=== PATIENT | male | born 2000 | race Caucasian/White ===

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

== ENCOUNTER 2020-04-04 19:59 | Emergency (ER) | payer OTHER, SELFPAY ==
[2018-06-30 15:06] VITALS: BMI 40.6
[2020-04-04 20:00] VITALS: BP 177/92; PULSE 128; RESP 20; TEMP 36.7; O2SAT 95; BMI 44.6
[2020-04-04 20:04] VITALS: BP 177/92; PULSE 125; PULSE 127; RESP 20; TEMP 36.7; O2SAT 94
[2020-04-04 21:35] VITALS: O2SAT 94
[2020-04-04 21:41] VITALS: O2SAT 94
--- NOTE | 2020-04-04 21:50 | RAD_ITS ---
COUGH AND SOB; PENDING COVID TEST EXAMINATION/TECHNIQUE: XR Chest 1 View: COMPARISON: None FINDINGS: LINES/DEVICES: None. LUNGS: Left basilar infiltrate and effusion. No pneumothorax. MEDIASTINUM AND CARDIOVASCULAR STRUCTURES: Cardiac silhouette not enlarged. Central airways and mediastinal contour are unremarkable. BONES AND SOFT TISSUES: Unremarkable. RAD/Chest 1 View (Portable) IMPRESSION: Left basilar infiltrate and effusion at 2210 Reported and signed by: Karely Donaldson DO Electronically Signed: Karely Donaldson DO at 22:09 EST Tel , Service support ,
[2020-04-04 22:39] VITALS: BP 138/72; PULSE 112; RESP 22; TEMP 37.4; O2SAT 97
--- NOTE | 2020-04-04 22:41 | EKG12_ITS ---
Test Reason : DYSRHYTHMIA Blood Pressure : / mmHG Vent. Rate : 113 BPM Atrial Rate : 113 BPM P-R Int : 160 ms QRS Dur : 092 ms QT Int : 304 ms P-R-T Axes : 041 060 017 degrees QTc Int : 416 ms Sinus tachycardia Otherwise normal ECG Confirmed by LUX CODY, CURRY ([id number]), science editor MAKAYLA PHAN ([id number]) on 04/09/2020 11:14:50 AM Referred By: KETAN Confirmed By:SHAYLA WASSERMAN MD
[2020-04-04 23:13] LABS: Absolute Neutrophil Count 2.5 X10^3/uL (2.0-7.7); Hematocrit 37.5 % (40-54); Hemoglobin 12.1 g/dL (13.0-16.5); Lymphocyte % 17.2 % (19-41); Mean Corp Hgb Conc 32.3 g/dL (32-36); Mean Corpuscular Hgb 29.1 pg (27.0-32.0); Mean Corpuscular Volume 90.1 fL (80-94); Mean Platelet Vol. 9.1 fl (6.2-12.0); Monocyte# 0.33 X10^3/uL; Monocyte% 9.5 % (0-10); NRBC Flagged by Analyzer 0 % (0-5); Neutrophil # 2.54 X10^3/uL (2.7-7.7); POSITIVE DIFFERENTIAL YES; Platelet Count 168 K/mm3 (150-450); RBC Distribution Width CV 14.7 % (11.6-14.6); Red Blood Count 4.16 M/mm3 (4.6-6.2); White Blood Count 3.5 K/mm3 (4.4-11.0)
[2020-04-04 23:16] LABS: Differential Indicated SCAN CRITERIA MET
[2020-04-04 23:23] LABS: D-Dimer Quantitative (DVT/PE) 0.58 FEU/ug/m (0.27-0.49)
[2020-04-04 23:28] LABS: ALB/GLOB Ratio 1.1 RATIO (0.9-2.4); AST(SGOT) 16 U/L (15-37); Alanine Aminotransfer ALT/SGPT 38 U/L (16-61); Albumin, Serum 3.7 g/dL (3.2-5.0); Alkaline Phosphatase 71 U/L (45-117); Anion Gap 7 (5-15); BUN 16 mg/dL (7-18); Chloride 106 mmol/L (98-107); Creatinine, Serum 0.89 mg/dL (0.70-1.30); EST Glomerular Filtration Rate 115 mL/min (>60); Est Glom Filt Rate - Afr Amer 140 mL/min (>60); Estimated Creatinine Clearance 162.55 ml/min; Globulin 3.5 g/dL (2.2-4.2); Glucose 95 mg/dL (74-106); Potassium 3.8 mmol/L (3.5-5.1); Protein, Total 7.2 g/dL (6.4-8.2); Sodium Level 139 mmol/L (136-145)
[2020-04-04 23:33] VITALS: BP 133/83; PULSE 111; RESP 20; TEMP 37.4; O2SAT 97
--- NOTE | 2020-04-04 23:33 | CT_ITS ---
COUGH, SOB SINCE THURSDAY, ELEVATED D-DIMER, COVID PENDING TECHNIQUE:CTA Chest WO/W Contrast Injection A CT of the chest was performed following the administration of ml 100mL Isovue-370 Thin axial reconstructed images were performed through the pulmonary vasculature as per the routine pulmonary embolus protocol.MIP and mutiplanar reconstructions A dose optimization technique was used during the scan # of images including paperwork:[id number] Comparison: Chest radiograph on April 04, 2020 FINDINGS: No aneurysm or dissection. Pulmary arteries: No evidence of pulmonary emboli The heart is enlarged. No evidence of right heart strain. Trace pericardial effusion. No pleural effusion. Increased density is seen within anterior mediastinum that may represent residual thymic tissue versus anterior mediastinal adenopathy. No middle mediastinal or hilar adenopathy is noted The lungs patchy groundglass opacity is seen within the right upper lobe. This is more prominent in the dependent portion of the right lower lobe. There is also patchy infiltrate seen within the left upper lobe most marked in the posterior segment. Consolidative infiltrate is seen within the left lower lobe. Thickening of the left fissure. Pneumpothorax: none The trachea and central airways appear patent . Limited views of the upper abdomen small hiatal hernia. The spleen is enlarged measuring 18.2 cm. No acute osseous abnormality. IMPRESSION: There is no aneurysm dissection or pulmonary embolism Patchy groundglass opacity seen within the right upper and lower lobes and within the posterior segment of the left upper lobe. In addition there is consolidative infiltrate seen within the left lower lobe. While these findings can be seen with viral pneumonitis they are nonspecific and can occur with a variety of infectious or noninfectious etiology Anterior mediastinal soft tissue density which may represent residual thymic tissue versus adenopathy. No additional adenopathy is noted. There is splenomegaly. Small hiatal hernia Individualized dose optimization techniques were used for this CT. at 0024 Reported and signed by: Karely Donaldson DO Electronically Signed: Karely Donaldson DO at 0:23 EST Tel , Service support , CT/CTA Chest W/WO Contrast
[2020-04-05 00:14] LABS: BNP,B-Type NATRIURETIC PEPTIDE < 2.0 pg/mL (0-100)
[2020-04-05 00:33] VITALS: BP 137/77; PULSE 106; RESP 20; TEMP 37.4; O2SAT 97
[2020-04-05 00:53] VITALS: O2SAT 97
--- NOTE | 2020-04-05 01:10 | ED.VIS.FLU ---
History of Present Illness Chief Complaint: Shortness of Breath Informant: Patient Onset: Days Context: Gradual Onset Timing: Continuous Quality: Dyspnea on exertion Associated Symptoms: Cough, Fever, Sore throat, White sputum Chest Pain: None Narrative: Is a 19-year-old male with no significant past medical history presenting with worsening shortness of breath and pain with breathing. Patient's entire family tested positive for Covid 1/2 weeks ago. Patient had 2 negative Covid test and was tested again yesterday. That test is still pending. Patient states he had worsening respiratory symptoms since Thursday, 4 days ago. He has had pleuritic chest pain, dyspnea on exertion and shortness of breath even when sitting down. He states his symptoms are slightly better when he leans forward and slightly worse when he lays backwards. He denies any GI symptoms or abdominal pain. He has had associated sore throat nasal congestion. Reports associated fever and chills. Is been alternating Tylenol and ibuprofen relief of his symptoms. Came to the emergency room for further evaluation today. Past Medical History - Allergies and Home Meds Allergies/Adverse Reactions: Allergies No Known Allergies Allergy (Verified 04/04/20 20:00) Primary Care Physician: Callie Smith MD [Primary Care Provider] - Past Medical History: None Surgical History: noncontributory Lives: With Family Smoking Status: Never smoker Review of Systems General: Reports: Chills, Fever, Malaise. Denies: Sweats Cardiovascular: Denies: Chest pain, Palpitations Respiratory: Reports: Dyspnea, Cough, Sputum, Dyspnea on exertion. Denies: Orthopnea, Paroxysmal nocturnal dyspnea Gastrointestinal: Denies: Abdominal pain, Nausea, Vomiting, Diarrhea, Melena, Hematochezia Genitourinary: Denies: Dysuria, Hematuria, Frequency Skin: Denies: Rash Neurological: Denies: Headache, Weakness, Numbness Physical Exam Vital Signs/Narrative: Vital Signs Temp Pulse Resp BP Pulse Ox 04/05/20 00:33 99.3 F H 106 H 20 H 137/77 H 97 04/04/20 23:33 99.4 F H 111 H 20 H 133/83 H 97 04/04/20 22:39 99.4 F H 112 H 22 H 138/72 H 97 04/04/20 21:35 94 Inital Vital Signs reviewed: Yes General: Well nourished, Well developed Head: Normocephalic, Atraumatic Eyes: Perrl, EOMI ENT: Moist mucous membranes, TM's clear Neck: Supple, Nontender Cardiovascular: Regular rhythm, No murmurs, Tachycardia Respiratory: Rhonchi, Diminished. Negative for: Decreased Air Movement, Retractions Abdomen: Soft, Nontender, Nondistended, Normal bowel sounds Back: Nontender, Normal Inspection Extremities: Nontender, No edema Skin: Normal color, No rash Neurological: Alert, Oriented x3, Cranial nerves II-XII grossly intact, Normal Strength, Normal Sensation Psychological: Normal affect Diagnostic/Tx/Re-eval Chest X-Ray - ED: 1 View, Read by ED Physician, Read by Radiologist, Left Infiltrate, Left Effusion Clinical Impression(s) from Imaging Studies Chest X-Ray 04/04/20 21:50 IMPRESSION: Left basilar infiltrate and effusion at 2210 Reported and signed by: Karely Donaldson DO Electronically Signed: Kraely Donaldson DO at 22:09 EST Tel , Service support , Chest CTA 04/04/20 23:33 Laboratory Data 04/04/20 04/04/20 04/04/20 22:49 22:49 22:49 WBC 3.5 L RBC 4.16 L Hgb 12.1 L Hct 37.5 L MCV 90.1 MCH 29.1 MCHC 32.3 RDW Std Deviation 49.0 H RDW Coeff of Aracely 14.7 H Plt Count 168 MPV 9.1 Immature Gran % (Auto) 0.300 Neut % (Auto) 73.0 H Lymph % (Auto) 17.2 L [place] % (Auto) 9.5 Eos % (Auto) 0.0 Baso % (Auto) 0.0 Absolute Neuts (auto) 2.5 Absolute Lymphs (auto) 0.60 L Nucleated RBC % 0 Diff Path Review May foll D-Dimer Quant (PE/DVT) 0.58 H* Sodium 139 Potassium 3.8 Chloride 106 Carbon Dioxide 26.0 Anion Gap 7 BUN 16 Creatinine 0.89 Estim Creat Clear Calc 162.55 Est GFR (MDRD) Af Amer 140 Est GFR (MDRD) Non-Af 115 BUN/Creatinine Ratio 18.0 Glucose 95 Lactic Acid Calcium 8.0 L Total Bilirubin 0.40 AST 16 ALT 38 Alkaline Phosphatase 71 Troponin I < 0.015 B-Natriuretic Peptide Total Protein 7.2 Albumin 3.7 Globulin 3.5 Albumin/Globulin Ratio 1.1 04/04/20 04/04/20 22:49 22:49 WBC RBC Hgb Hct MCV MCH MCHC RDW Std Deviation RDW Coeff of Aracely Plt Count MPV Immature Gran % (Auto) Neut % (Auto) Lymph % (Auto) [place] % (Auto) Eos % (Auto) Baso % (Auto) Absolute Neuts (auto) Absolute Lymphs (auto) Nucleated RBC % Diff Path Review D-Dimer Quant (PE/DVT) Sodium Potassium Chloride Carbon Dioxide Anion Gap BUN Creatinine Estim Creat Clear Calc Est GFR (MDRD) Af Amer Est GFR (MDRD) Non-Af BUN/Creatinine Ratio Glucose Lactic Acid 1.0 Calcium Total Bilirubin AST ALT Alkaline Phosphatase Troponin I B-Natriuretic Peptide < 2.0 Total Protein Albumin Globulin Albumin/Globulin Ratio - Rhythm Strip Rhythm Strip: Sinus Tach Rate: 113 Ectopy: None - EKG Initial EKG Interpretation: Sinus Tachycardia, - - Tachycardia at a rate of 113 Normal intervals Normal axis Normal ST segments Fluid Bolus: NS - Medical Decision Making Patient evaluated for worsening shortness of breath and respiratory symptoms. He had a positive exposure for Covid but negative Covid test. Clinically patient's presentation is concerning for Covid and possible superimposed bacterial pneumonia given the timing of his symptoms. Chest x-ray shows infiltrate with pleural effusion. She is tachycardic but not hypoxic. He does appear comfortable. Differential does include PE and D-dimer obtained. Is elevated. CTA does not show any acute thromboembolism but does show multifocal infiltrate consistent with a viral pneumonia as well as consolidation of the left base with associated effusion. Patient likely has viral pneumonia with superimposed bacterial pneumonia. He has a leukopenia consistent with a viral infection. Lactate is normal. He is ambulated in the emergency room does not have any hypoxia. He is feeling well. Patient would like to try outpatient treatment. He will be placed on doxycycline is given first dose in the emergency room. He is given strict return precautions. He is counseled to quarantine at home. Patient is counseled on signs and symptoms requiring return to the emergency room. Patient verbalizes agreement and understand this plan. Patient discharged home in stable and improved condition. Patient's tachycardia does improve in the ER but present. Patient has a normal troponin have a low suspicion for myocarditis. EKG is not consistent with pericarditis. ED Disposition - Plan for ED Patient: Disposition: Home or Assisted Living Diagnosis: COVID-19 determined by clinical diagnostic criteria, Left lower lobe pneumonia, Tachycardia Instructions: Coronavirus Disease 2019 (COVID-19): Overview, ED Pneumonia (Adult) Prescriptions: Doxycycline 100 mg PO BID #20 cap Prescription Printed Referrals: Callie Smith MD [Primary Care Provider] -
[2020-04-05 01:20] VITALS: BP 147/77; PULSE 112; RESP 18; O2SAT 95
[2020-04-05] MEDS: Doxycycline 100 MG CAPSULE PO (01:24)
[2020-04-05 12:35] LABS: Pathologist Review Reviewed
== END 2020-04-05 01:45 | disposition home or self-care (01) ==
PROVIDERS: Emergency Provider Emergency Medicine; PCP Pediatrics
DX: U07.1 COVID-19 (principal); J18.9 Pneumonia, unspecified organism; R00.0 Tachycardia, unspecified
CPT/HCPCS: 71045; 71275; 80053; 83605; 83880; 84484; 85025; 85379; 87040; 87426; 93005; 94760; 99285; J7040; Q9967

== ENCOUNTER → 2020-12-01 10:04 | Outpatient (CLI) | payer OTHER, SELFPAY | PROVIDERS: PCP Pediatrics; Referring Provider Family Medicine; Visit Provider Family Medicine | DX: R09.81 Nasal congestion (principal); R06.02 Shortness of breath | CPT/HCPCS: 87633 ==